=== PATIENT | male | born 2000 | race Caucasian/White ===

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

== ENCOUNTER 2018-05-25 11:13 | Outpatient (CLI) | payer OTHER ==
--- NOTE | 2018-05-25 13:15 | RAD ---
TWO VIEWS LEFT KNEE: Date: 05-25-18 History: Left knee ACL graft rupture. FINDINGS: There are post-surgical changes related to ACL reconstruction. Previously noted screw within the tibi al tunnel is no longer visualized in this region. There is an area of increased echogenicity and find ings may be related to revision of ACL reconstruction. There is no fracture or dislocation seen. No o ther osseous abnormality. IMPRESSION: Post-surgical changes related to left ACL reconstruction. The previously noted screw within the tibia l tunnel is no longer visualized, and findings may be related to interval revision of ACL reconstruct ion. Clinical correlation is suggested. POS: [facility]
== END 2018-05-25 11:14 | disposition home or self-care (01) ==
LOC: SCSRAD 11:13
DX: T84.013A Broken internal left knee prosthesis, initial encounter (principal); Z98.890 Other specified postprocedural states

== ENCOUNTER 2018-06-23 16:06 | Outpatient (CLI) | payer OTHER ==
--- NOTE | 2018-06-23 17:57 | CT ---
CT OF LEFT KNEE PERFORMED WITHOUT CONTRAST ENHANCEMENT: 06/23/18 HISTORY: Patient had a history of ACL repair in 2015 which has subsequently failed. Second surgery was done to place bone grafts for an upcoming ACL ligament reconstruction. COMPARISON: None. The tibial and femoral tunnels of the previous ACL repair are noted. Within the tibial tunnel, there is a bone graft that has been placed. The length of this bone graft is approximately 3 cm. It begins at the level of the tibial spine. There is some slight lucency along the anterior margin of this radha t. The posterior margin appears to be incorporated with bone. On the femoral side, the femoral tunnel has a shorter segment bone plug measuring approximately 1.5 c m. This plug is less rectangular in shape. The margin which is closer to the intercondylar region is irregular and has a somewhat narrow pointed appearance. A moderate amount of lucency or cystic change along the lateral side of this portion of the bone plug, the more central portion of the plug on the AP projection appears to be incorporating the bone and in the mid portion of this bone graft on the lateral view, the central portion directly abuts the adjacent margins of the femoral tunnel. I have n o immediate postop films for comparison to see what type of change there has been in this bone graft. IMPRESSION: Bone plugs placed in the femoral and tibial tunnels as discussed above. There is some lucency along t he anterior and lateral margin of the tibial bone plug and more prominent cystic area along the later al margin of a more irregularity shaped femoral bone plug. POS: [facility]
== END 2018-06-23 16:07 | disposition home or self-care (01) ==
LOC: SCSCT 16:06
PROVIDERS: ATTEND Orthopaedic Surgery Sports Medicine
DX: T84.89XA Other specified complication of internal orthopedic prosthetic devices, implants and grafts, initial encounter (principal); R93.7 Abnormal findings on diagnostic imaging of other parts of musculoskeletal system